=== PATIENT | female | born 1985 | race Caucasian/White ===

== ENCOUNTER 2018-11-12 01:59 | Emergency (ER) | payer OTHER, SELFPAY ==
[2018-11-12] MEDS ORDERED: Azithromycin 250 MG TAB ONE (02:34)
[2018-11-12] MEDS ORDERED: Dexamethasone 4 mg/ml Vial ONE (02:34)
[2018-11-12] MEDS ORDERED: Benzonatate 100 MG CAP ONE (02:34)
== END 2018-11-12 02:40 | disposition home or self-care (01) ==
LOC: BURERS 01:59
DX: J20.9 Acute bronchitis, unspecified (principal); Z79.899 Other long term (current) drug therapy
CPT/HCPCS: 94640; J1100; J7620